=== PATIENT | male | born 1990 | race Caucasian/White ===

== ENCOUNTER 2017-01-08 20:24 | Emergency (ER) | payer OTHER ==
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
--- NOTE | 2017-01-08 21:48 | ED MED RECONCILIATION SUMMARY ---
Patient: JHONATAN ALFARO Medication Reconciliation Report [facility] VisitID: [id number] [address] [place] [address] 26y, M Registration Date/Time: 01/08/2017 Weight: 122.4 kg Height/Length: 72 in. BMI: 36.6 ALLERGIES: Amoxicillin The patient's Home Medications are listed below: NONE. The source(s) of the original Home Medication information: patient The following Medications were given to the patient in the Emergency Department: None. The following Medications were prescribed to the patient: Flexeril 10 mg: Take 1 orally every 8 hours as needed for muscle spasm. Dispense twenty (20). No refills. Substitution is permissible. -- Solange Harley A.R.N.P. Ultram 50 mg tablets: take 1-2 orally every 6 hours as needed for pain. Dispense twenty (20). No refills. Substitution is permissible. -- Solange Harley A.R.N.P.
--- NOTE | 2017-01-08 21:48 | ED MED RECONCILIATION SUMMARY ---
Patient: JHONATAN ALFARO Medication Reconciliation Report [facility] VisitID: [id number] [address] [place] [address] 26y, M Registration Date/Time: 01/08/2017 Weight: 122.4 kg Height/Length: 72 in. BMI: 36.6 ALLERGIES: Amoxicillin The patient's Home Medications are listed below: NONE. The source(s) of the original Home Medication information: patient The following Medications were given to the patient in the Emergency Department: None. The following Medications were prescribed to the patient: Flexeril 10 mg: Take 1 orally every 8 hours as needed for muscle spasm. Dispense twenty (20). No refills. Substitution is permissible. -- Solange Harley A.R.N.P. Ultram 50 mg tablets: take 1-2 orally every 6 hours as needed for pain. Dispense twenty (20). No refills. Substitution is permissible. -- Solange Harley A.R.N.P.
--- NOTE | 2017-01-08 21:48 | ED MAR SUMMARY ---
..... Medication Administration Record [facility] [address] [place], [place] [id number] Patient: LISA ALFAROALANIS Yen Visit ID: [id number] 26y, M Weight: 122.4 kg Height/Length: 72 in BMI: 36.6 ALLERGIES: Amoxicillin
--- NOTE | 2017-01-08 21:48 | ED MAR SUMMARY ---
..... Medication Administration Record [facility] [address] [place], [place] [id number] Patient: LISA ALFAROALANIS Yen Visit ID: [id number] 26y, M Weight: 122.4 kg Height/Length: 72 in BMI: 36.6 ALLERGIES: Amoxicillin
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
== END 2017-01-08 21:15 | disposition home or self-care (01) ==
LOC: ED SRH 20:24
DX: S16.1XXA Strain of muscle, fascia and tendon at neck level, initial encounter (principal); S39.012A Strain of muscle, fascia and tendon of lower back, initial encounter; S29.012A Strain of muscle and tendon of back wall of thorax, initial encounter; V53.5XXA Driver of pick-up truck or van injured in collision with car, pick-up truck or van in traffic accident, initial encounter; Y93.89 Activity, other specified; Y92.410 Unspecified street and highway as the place of occurrence of the external cause; Y99.9 Unspecified external cause status